=== PATIENT | male | born 1950 | race Caucasian/White ===

== ENCOUNTER 2017-07-02 08:42 | Outpatient (CLI) | payer MEDICARE, OTHER | END 2017-07-02 23:59 | disposition home or self-care (01) | LOC: RT 08:42 | PROVIDERS: ATTEND Internal Medicine Critical Care Medicine | DX: J44.9 Chronic obstructive pulmonary disease, unspecified (principal) ==

== ENCOUNTER 2019-05-24 23:50 | Emergency (ER) | payer MEDICARE ==
[~2019-05-24] VITALS: Ht 175.3 cm; Wt 62.3 kg
[2019-05-24] MEDS ORDERED: aspirin 81mg tab.chew PO ONE (23:55)
[2019-05-25 01:05] LABS: ALANINE AMINOTRANSFERASE 21 U/L (12-78); ALBUMIN 3.8 G/DL (3.4-5.0); ALBUMIN/GLOBULIN RATIO 1.1 (1.1-1.5); ALKALINE PHOSPHATASE 95 IU/L (46-116); ANION GAP 1 (8-16); ASPARTATE AMINO TRANSFERASE 29 U/L (10-37); BILIRUBIN,TOTAL 0.2 MG/DL (0.1-1.0); BLOOD UREA NITROGEN 18 MG/DL (7-18); BUN/CREATININE RATIO 13.5 (5.4-32.0); CHLORIDE 105 MMOL/L (99-107); CREATININE 1.33 MG/DL (0.60-1.10); GLUCOSE 104 MG/DL (70-104); POTASSIUM 4.1 MMOL/L (3.5-5.1); SODIUM 142 MMOL/L (135-145); TOTAL CARBON DIOXIDE 35.6 MMOL/L (24-32); TOTAL PROTEIN 7.3 G/DL (6.4-8.2); eGFR 53 ML/MIN
[2019-05-25 01:11] LABS: BASOPHILS # (AUTO) 0.1 X10'3 (0-0.2); BASOPHILS % (AUTO) 0.7 % (0-1); EOSINOPHILS # (AUTO) 0.2 X10'3 (0-0.9); EOSINOPHILS % (AUTO) 2.1 % (0-6); HEMATOCRIT 39.4 % (42.0-52.0); HEMOGLOBIN 13.3 g/dl (14.0-17.9); LYMPHOCYTES # (AUTO) 2.1 X10'3 (1.1-4.8); LYMPHOCYTES % (AUTO) 24.2 % (21-51); MEAN CORPUSCULAR HEMOGLOBIN 30.6 PG (27.0-31.0); MEAN CORPUSCULAR HGB CONC 33.9 g/dL (33.0-36.5); MEAN CORPUSCULAR VOLUME 90.4 FL (78-98); MEAN PLATELET VOLUME 7.6 FL (7.4-10.4); MONOCYTES # (AUTO) 0.7 X10'3 (0-0.9); MONOCYTES % (AUTO) 8.3 % (2-12); NEUTROPHILS # (AUTO) 5.7 X10'3 (1.8-7.7); NEUTROPHILS % (AUTO) 64.7 % (42-75); PLATELET COUNT 340 X10'3 (140-440); RED BLOOD COUNT 4.35 X10'6 (4.70-6.10); RED CELL DISTRIBUTION WIDTH 13.3 % (11.5-14.5); WHITE BLOOD COUNT 8.7 X10'3 (4.5-11.0)
[2019-05-25 01:14] LABS: MAGNESIUM 1.7 MG/DL (1.5-2.4)
[2019-05-25] MEDS ORDERED: AZIT250T83 PO (01:29)
[2019-05-25 01:37] VITALS: BP 156/90
== END 2019-05-25 01:47 | disposition home or self-care (01) ==
LOC: ER 23:51
DX: R07.89 Other chest pain (principal); J44.9 Chronic obstructive pulmonary disease, unspecified; I10 Essential (primary) hypertension; Z87.891 Personal history of nicotine dependence; Z99.81 Dependence on supplemental oxygen
CPT/HCPCS: 36415; 71045; 80053; 83735; 83880; 84484; 85025; 93005; 99284

== ENCOUNTER 2019-08-18 13:42 | Inpatient (IN) | payer MEDICARE ==
[~2019-08-18] VITALS: Ht 172.7 cm; Wt 61.4 kg
[2019-08-18] MEDS ORDERED: albuterol 2.5 MG/3 ML nebule NEB ONE ×2 (14:00→16:40)
[2019-08-18] MEDS ORDERED: methylPREDNISolone sod succ 125mg/2ml vial IV ONE (14:00)
[2019-08-18 14:10] LABS: BASOPHILS % (AUTO) 0.1 % (0-1); EOSINOPHILS % (AUTO) 0 % (0-6); HEMATOCRIT 37.5 % (42.0-52.0); HEMOGLOBIN 12.6 g/dl (14.0-17.9); LYMPHOCYTES # (AUTO) 0.3 X10'3 (1.1-4.8); LYMPHOCYTES % (AUTO) 2.2 % (21-51); MEAN CORPUSCULAR HEMOGLOBIN 29.9 PG (27.0-31.0); MEAN CORPUSCULAR HGB CONC 33.7 g/dL (33.0-36.5); MEAN CORPUSCULAR VOLUME 88.7 FL (78-98); MEAN PLATELET VOLUME 7.3 FL (7.4-10.4); MONOCYTES # (AUTO) 0.3 X10'3 (0-0.9); MONOCYTES % (AUTO) 2.5 % (2-12); NEUTROPHILS # (AUTO) 11.8 X10'3 (1.8-7.7); NEUTROPHILS % (AUTO) 95.2 % (42-75); PLATELET COUNT 377 X10'3 (140-440); RED BLOOD COUNT 4.23 X10'6 (4.70-6.10); RED CELL DISTRIBUTION WIDTH 14.2 % (11.5-14.5); WHITE BLOOD COUNT 12.4 X10'3 (4.5-11.0)
[2019-08-18 14:24] LABS: ALANINE AMINOTRANSFERASE 20 U/L (12-78); ALKALINE PHOSPHATASE 99 IU/L (46-116); ANION GAP 9 (8-16); ASPARTATE AMINO TRANSFERASE 26 U/L (10-37); BILIRUBIN,TOTAL 0.5 MG/DL (0.1-1.0); BLOOD UREA NITROGEN 21 MG/DL (7-18); BUN/CREATININE RATIO 13.6 (5.4-32.0); CALCIUM 9.2 MG/DL (8.5-10.1); CHLORIDE 94 MMOL/L (99-107); CREATININE 1.54 MG/DL (0.60-1.10); GLUCOSE 144 MG/DL (70-104); POTASSIUM 4.8 MMOL/L (3.5-5.1); SODIUM 131 MMOL/L (135-145); TOTAL CARBON DIOXIDE 28.5 MMOL/L (24-32); eGFR 45 ML/MIN
[2019-08-18] MEDS ORDERED: CefTRIAXone 2gm/D5W 50ml 50 ML IV ONE (16:05)
[2019-08-18] MEDS ORDERED: DOXY100T2 PO (16:28)
[2019-08-18] MEDS ORDERED: TIOT4MIS2 IH (16:28)
[2019-08-18] MEDS ORDERED: PRED10TA PO (16:28)
[2019-08-18] MEDS ORDERED: BUDE10.2 IH (16:28)
[2019-08-18] MEDS ORDERED: SPIR25TA5 PO ×2 (16:28)
[2019-08-18] MEDS ORDERED: OMEP-50 PO (16:36)
[2019-08-18] MEDS ORDERED: MULT-1085 PO (16:36)
[2019-08-18] MEDS ORDERED: CHOL20004 PO (16:36)
[2019-08-18] MEDS ORDERED: BISO1TAB38 PO (16:36)
[2019-08-18 16:41] LABS: ABG BASE EXCESS 1.3 mmol/L (-2.0-3.0); ABG HCO3 25.7 mmol/L (22.0-26.0); ABG OXYGEN SATURATION 96.2 % (95-98); ABG PCO2 (T) 40.1 mmHg (35.0-45.0); ABG PH (T) 7.425 (7.350-7.450); ABG PO2 (T) 78.2 mmHg (83-108); ALLEN'S TEST POSITIVE; FCOHb 0.4 % (0.5-1.5); FLOW 3 L/min; FMetHb 0.1 % (0.3-1.12); FO2Hb 95.7 % (94-100); TOTAL HEMOGLOBIN 13.2 G/dl (14.0-17.9)
[2019-08-18] MEDS: normal saline 1000ml 1,000 ML IV SCH (16:42)
[2019-08-18] MEDS ORDERED: albuterol 2.5 MG/3 ML nebule ONE (16:42)
[2019-08-18] MEDS ORDERED: ondansetron/PF 4mg/2ml inj IV PRN (16:45)
[2019-08-18] MEDS ORDERED: mag hydrox/Alum hydrox/simeth 30ml oral suspension PO PRN (16:45)
[2019-08-18] MEDS ORDERED: acetaminophen 325mg tablet PO PRN (16:45)
[2019-08-18] MEDS ORDERED: magnesium hydroxide 30ml (MOM) UD suspension PO PRN (16:45)
--- NOTE | 2019-08-18 16:47 | NUR ---
rt at bedside giving tx.
[2019-08-18] MEDS: levoFLOXACIN-Levaquin 750MG/D5 150 ML IV SCH (17:30)
--- NOTE | 2019-08-18 17:48 | NUR ---
Received report from Yousuf in ED. Patient will be admitted to room 7192E
--- NOTE | 2019-08-18 18:04 | NUR ---
Patient admitted to 3013A at 1756. VS: BP 147/76, HR 91; RR 22; pain 0/10, O2 98% on 4 L. patient was a little short of breath upon admit from walking and ER nurse put O2 up from 3 L until patient recovers. Tele placed on patient.
--- NOTE | 2019-08-18 18:12 | NUR ---
Problems reprioritized. Patient report given, questions answered & plan of care reviewed with Ingrid DEJESUS.
[2019-08-18 18:48] VITALS: BP 152/80
[2019-08-18] MEDS: ipratropium/albuterol 3ml nebule NEB SCH ×2 (18:54→23:23)
[2019-08-18] MEDS: budesonide 0.5mg/2ml UD nebule IH SCH (18:55)
[2019-08-18] MEDS: heparin, porcine 5000 units/ml vial SQ SCH (20:00)
[2019-08-18] MEDS: methylPREDNISolone sod succ 125mg/2ml vial IV SCH (20:30)
[2019-08-18] MEDS: guaiFENesin ER 600mg tablet PO SCH (20:31)
[2019-08-18] MEDS: spironolactone 25 MG tablet PO SCH (20:31)
[2019-08-18] MEDS: LORazepam 0.5 MG tablet PO PRN (20:31)
--- NOTE | 2019-08-18 21:28 | NUR ---
pt wanted bipap. seems a little less anxious after anxiety med. sitting in recliner. states he just doesnt feel good and feels like he can't breathe. sats 98%on 6Lnc
[2019-08-18 23:00] VITALS: BP 126/77
--- NOTE | 2019-08-18 23:23 | NUR ---
pt wanted bipap off, stated he is too uncomfortable, RT at bedside also. nasal cannula on
[2019-08-19] MEDS ORDERED: temazepam 15mg capsule PO ONE (00:25)
[2019-08-19] MEDS: methylPREDNISolone sod succ 125mg/2ml vial IV SCH ×4 (02:01→20:24)
[2019-08-19] MEDS: LORazepam 0.5 MG tablet PO PRN ×3 (02:01→23:32)
[2019-08-19 02:07] VITALS: BP 118/66
[2019-08-19] MEDS: ipratropium/albuterol 3ml nebule NEB SCH ×6 (03:03→23:23)
[2019-08-19 04:53] LABS: BASOPHILS % (AUTO) 0.1 % (0-1); EOSINOPHILS % (AUTO) 0 % (0-6); HEMATOCRIT 35.9 % (42.0-52.0); HEMOGLOBIN 12.3 g/dl (14.0-17.9); LYMPHOCYTES # (AUTO) 0.4 X10'3 (1.1-4.8); LYMPHOCYTES % (AUTO) 3.8 % (21-51); MEAN CORPUSCULAR HEMOGLOBIN 30.4 PG (27.0-31.0); MEAN CORPUSCULAR HGB CONC 34.4 g/dL (33.0-36.5); MEAN CORPUSCULAR VOLUME 88.2 FL (78-98); MEAN PLATELET VOLUME 7.9 FL (7.4-10.4); MONOCYTES # (AUTO) 0.3 X10'3 (0-0.9); MONOCYTES % (AUTO) 2.7 % (2-12); NEUTROPHILS # (AUTO) 9.4 X10'3 (1.8-7.7); NEUTROPHILS % (AUTO) 93.4 % (42-75); PLATELET COUNT 358 X10'3 (140-440); RED BLOOD COUNT 4.06 X10'6 (4.70-6.10); WHITE BLOOD COUNT 10.1 X10'3 (4.5-11.0)
[2019-08-19 05:17] LABS: ALBUMIN 3.7 G/DL (3.4-5.0); ANION GAP 14 (8-16); BLOOD UREA NITROGEN 22 MG/DL (7-18); BUN/CREATININE RATIO 14.1 (5.4-32.0); CHLORIDE 90 MMOL/L (99-107); CREATININE 1.56 MG/DL (0.60-1.10); GLUCOSE 151 MG/DL (70-104); POTASSIUM 4.5 MMOL/L (3.5-5.1); SODIUM 132 MMOL/L (135-145); TOTAL CARBON DIOXIDE 28.4 MMOL/L (24-32); eGFR 44 ML/MIN
--- NOTE | 2019-08-19 06:08 | NUR ---
Problems reprioritized. Patient report given, questions answered & plan of care reviewed with Lali DEJESUS.
--- NOTE | 2019-08-19 06:49 | NUR ---
Patient in room PCU 3013. I have received report from OLEG Quintero and had the opportunity to ask questions and assume patient care. Patient awake in recliner and in no acute distress.
[2019-08-19 07:00] VITALS: BP 140/83
[2019-08-19] MEDS: budesonide 0.5mg/2ml UD nebule IH SCH ×2 (07:14→19:08)
[2019-08-19] MEDS ORDERED: vitamin D (cholecalciferol) 1,000 unit tablet PO SCH (08:00)
[2019-08-19] MEDS ORDERED: ipratropium 0.5 MG/2.5ML nebule IH SCH (08:00)
[2019-08-19] MEDS: heparin, porcine 5000 units/ml vial SQ SCH ×2 (08:00→20:00)
[2019-08-19] MEDS: atenolol 25mg tablet PO SCH (08:01)
[2019-08-19] MEDS: pantoprazole 40mg Tablet.DR PO SCH (08:02)
[2019-08-19] MEDS: spironolactone 25 MG tablet PO SCH ×2 (08:02→20:26)
[2019-08-19] MEDS: guaiFENesin ER 600mg tablet PO SCH ×2 (08:02→20:25)
[2019-08-19] MEDS: multivitamins, therapeutics tablet PO SCH (08:03)
[2019-08-19] MEDS: levoFLOXACIN-Levaquin 750MG/D5 150 ML IV SCH (08:05)
[2019-08-19] MEDS: HYDROchlorothiazide 25mg tablet PO SCH (08:05)
[2019-08-19 11:00] VITALS: BP 137/89
[2019-08-19 15:00] VITALS: BP 141/78
--- NOTE | 2019-08-19 15:37 | NUR ---
Malnutrition consult: Pt admit w/ COPD exacerbation, community-acquired PNA w/ hx COPD. Pt reports no significant change in SOB yet per MD note. Pt seen by KAREY and reports lower PO past 6 months secondary to SOB w/ mild wt loss. Pt reports 145 pounds 6 months ago; current wt not scaled this admit and pt has no accurate scaled wt hx at this time. Pt does not appear to have visible muscle/fat wasting, has normal strength, no edema/wounds. At this time pt does not meet minimum malnutrition criteria. PO 0-25% heart healthy meals so far this admit; pt reports r/t SOB but was agreeable to heart healthy diet alternative write-in list in addition to Ensure Enlive TIDWM; MD notified. Will continue to monitor for additional malnutrition criteria this admit. Addendum: 08/19/19 at [address] Amended: Links added.
[2019-08-19] MEDS ORDERED: lactose-reduced food (Ensure Enlive) - 237ml bottle PO SCH (18:00)
--- NOTE | 2019-08-19 18:32 | NUR ---
Patient in room PCU 3013. I have received report from OLEG Escalera and had the opportunity to ask questions and assume patient care.
--- NOTE | 2019-08-19 18:32 | NUR ---
Problems reprioritized. Patient report given, questions answered & plan of care reviewed with OLEG Echevarria. Patient stable at transfer of care.
[2019-08-19 19:00] VITALS: BP 135/83
[2019-08-19] MEDS: lactobacillus rhamnosus 10,000 MMU CELLS/CAPSULE PO SCH (20:25)
[2019-08-19] MEDS ORDERED: Melatonin 3mg tablet PO PRN (21:40)
[2019-08-19 23:00] VITALS: BP 121/75
[2019-08-20] MEDS: methylPREDNISolone sod succ 125mg/2ml vial IV SCH ×4 (02:47→19:55)
[2019-08-20 03:00] VITALS: BP 134/70
[2019-08-20] MEDS: ipratropium/albuterol 3ml nebule NEB SCH ×6 (03:21→23:17)
[2019-08-20 05:15] LABS: BASOPHILS % (AUTO) 0.1 % (0-1); EOSINOPHILS % (AUTO) 0 % (0-6); HEMATOCRIT 37.5 % (42.0-52.0); LYMPHOCYTES # (AUTO) 0.4 X10'3 (1.1-4.8); LYMPHOCYTES % (AUTO) 2.3 % (21-51); MEAN CORPUSCULAR HEMOGLOBIN 30.2 PG (27.0-31.0); MEAN CORPUSCULAR HGB CONC 34.6 g/dL (33.0-36.5); MEAN CORPUSCULAR VOLUME 87.5 FL (78-98); MEAN PLATELET VOLUME 7.9 FL (7.4-10.4); MONOCYTES # (AUTO) 0.8 X10'3 (0-0.9); NEUTROPHILS # (AUTO) 15.1 X10'3 (1.8-7.7); NEUTROPHILS % (AUTO) 92.6 % (42-75); PLATELET COUNT 391 X10'3 (140-440); RED BLOOD COUNT 4.29 X10'6 (4.70-6.10); RED CELL DISTRIBUTION WIDTH 13.9 % (11.5-14.5); WHITE BLOOD COUNT 16.3 X10'3 (4.5-11.0)
[2019-08-20 05:29] LABS: ALBUMIN 3.7 G/DL (3.4-5.0); ANION GAP 7 (8-16); BLOOD UREA NITROGEN 35 MG/DL (7-18); BUN/CREATININE RATIO 21.2 (5.4-32.0); CALCIUM 9.4 MG/DL (8.5-10.1); CHLORIDE 90 MMOL/L (99-107); CREATININE 1.65 MG/DL (0.60-1.10); GLUCOSE 126 MG/DL (70-104); POTASSIUM 4.6 MMOL/L (3.5-5.1); SODIUM 126 MMOL/L (135-145); TOTAL CARBON DIOXIDE 29.2 MMOL/L (24-32); eGFR 42 ML/MIN
--- NOTE | 2019-08-20 06:06 | NUR ---
Problems reprioritized. Patient report given, questions answered & plan of care reviewed with OLEG Escalera.
[2019-08-20 07:04] VITALS: BP 129/74
[2019-08-20] MEDS: budesonide 0.5mg/2ml UD nebule IH SCH ×2 (07:13→19:24)
[2019-08-20] MEDS: heparin, porcine 5000 units/ml vial SQ SCH ×2 (08:00→19:55)
[2019-08-20] MEDS: multivitamins, therapeutics tablet PO SCH (08:10)
[2019-08-20] MEDS: vitamin D (cholecalciferol) 1,000 unit tablet PO SCH (08:10)
[2019-08-20] MEDS: pantoprazole 40mg Tablet.DR PO SCH (08:11)
[2019-08-20] MEDS: HYDROchlorothiazide 25mg tablet PO SCH (08:11)
[2019-08-20] MEDS: atenolol 25mg tablet PO SCH (08:11)
[2019-08-20] MEDS: spironolactone 25 MG tablet PO SCH ×2 (08:12→20:07)
[2019-08-20] MEDS: LORazepam 0.5 MG tablet PO PRN ×2 (08:13→23:37)
[2019-08-20] MEDS: lactobacillus rhamnosus 10,000 MMU CELLS/CAPSULE PO SCH ×2 (08:13→19:54)
[2019-08-20] MEDS: guaiFENesin ER 600mg tablet PO SCH ×2 (08:13→20:06)
[2019-08-20 11:00] VITALS: BP 124/72
[2019-08-20 15:00] VITALS: BP 125/73
[2019-08-20] MEDS: CefTRIAXone 2gm/D5W 50ml 50 ML IV SCH (16:17)
[2019-08-20] MEDS: normal saline 1000ml 1,000 ML IV SCH (16:42)
[2019-08-20 18:00] VITALS: BP 130/78
--- NOTE | 2019-08-20 18:05 | NUR ---
Patient in room PCU 3013. I have received report from OLEG Escalera and had the opportunity to ask questions and assume patient care.
--- NOTE | 2019-08-20 18:05 | NUR ---
Problems reprioritized. Patient report given, questions answered & plan of care reviewed with OLEG Huitron. Patient stable at transfer of care.
[2019-08-20 22:00] VITALS: BP 115/57
[2019-08-21] MEDS: methylPREDNISolone sod succ 125mg/2ml vial IV SCH ×3 (01:55→14:09)
[2019-08-21 02:00] VITALS: BP 117/57
[2019-08-21] MEDS: ipratropium/albuterol 3ml nebule NEB SCH ×4 (02:51→14:50)
--- NOTE | 2019-08-21 03:36 | NUR ---
Pt's last BM was 08/18/2019, offered MOM, but pt refused.
--- NOTE | 2019-08-21 06:21 | NUR ---
Problems reprioritized. Patient report given, questions answered & plan of care reviewed with OLEG Licea.
[2019-08-21 06:27] LABS: BASOPHILS % (AUTO) 0.1 % (0-1); EOSINOPHILS % (AUTO) 0 % (0-6); HEMATOCRIT 35.7 % (42.0-52.0); HEMOGLOBIN 12.4 g/dl (14.0-17.9); LYMPHOCYTES # (AUTO) 0.3 X10'3 (1.1-4.8); MEAN CORPUSCULAR HEMOGLOBIN 30.6 PG (27.0-31.0); MEAN CORPUSCULAR HGB CONC 34.6 g/dL (33.0-36.5); MEAN CORPUSCULAR VOLUME 88.2 FL (78-98); MEAN PLATELET VOLUME 7.9 FL (7.4-10.4); MONOCYTES # (AUTO) 0.7 X10'3 (0-0.9); MONOCYTES % (AUTO) 8.5 % (2-12); NEUTROPHILS # (AUTO) 7.1 X10'3 (1.8-7.7); NEUTROPHILS % (AUTO) 87.4 % (42-75); PLATELET COUNT 338 X10'3 (140-440); RED BLOOD COUNT 4.05 X10'6 (4.70-6.10); RED CELL DISTRIBUTION WIDTH 13.8 % (11.5-14.5); WHITE BLOOD COUNT 8.2 X10'3 (4.5-11.0)
--- NOTE | 2019-08-21 06:31 | NUR ---
Patient in room PCU 3013. I have received report from Elana DEJESUS and had the opportunity to ask questions and assume patient care.
[2019-08-21 06:37] LABS: ALBUMIN 3.2 G/DL (3.4-5.0); ANION GAP 6 (8-16); BLOOD UREA NITROGEN 43 MG/DL (7-18); BUN/CREATININE RATIO 28.5 (5.4-32.0); CALCIUM 9.1 MG/DL (8.5-10.1); CHLORIDE 94 MMOL/L (99-107); CREATININE 1.51 MG/DL (0.60-1.10); GLUCOSE 124 MG/DL (70-104); POTASSIUM 4.9 MMOL/L (3.5-5.1); SODIUM 131 MMOL/L (135-145); TOTAL CARBON DIOXIDE 31.5 MMOL/L (24-32); eGFR 46 ML/MIN
[2019-08-21] MEDS: lactobacillus rhamnosus 10,000 MMU CELLS/CAPSULE PO SCH (07:10)
[2019-08-21] MEDS: vitamin D (cholecalciferol) 1,000 unit tablet PO SCH (07:10)
[2019-08-21] MEDS: heparin, porcine 5000 units/ml vial SQ SCH ×2 (07:10→07:13)
[2019-08-21] MEDS: multivitamins, therapeutics tablet PO SCH (07:11)
[2019-08-21] MEDS: guaiFENesin ER 600mg tablet PO SCH (07:11)
[2019-08-21] MEDS: pantoprazole 40mg Tablet.DR PO SCH (07:11)
[2019-08-21] MEDS ORDERED: levoFLOXACIN-Levaquin 750MG/D5 150 ML IV SCH (08:00)
[2019-08-21] MEDS: budesonide 0.5mg/2ml UD nebule IH SCH (08:10)
[2019-08-21 11:00] VITALS: BP 140/76
[2019-08-21] MEDS ORDERED: lactose-reduced food (Ensure Enlive) - 237ml bottle PO SCH ×2 (13:00)
--- NOTE | 2019-08-21 13:51 | NUR ---
Patient in room PCU 3013. I have received report from OLEG Licea and had the opportunity to ask questions and assume patient care.
--- NOTE | 2019-08-21 13:52 | NUR ---
Problems reprioritized. Patient report given, questions answered & plan of care reviewed with Kay.
[2019-08-21] MEDS: CefTRIAXone 2gm/D5W 50ml 50 ML IV SCH (14:09)
[2019-08-21 15:00] VITALS: BP 136/84
[2019-08-21] MEDS: LORazepam 0.5 MG tablet PO PRN (15:48)
== END 2019-08-21 17:53 | DRG 193 ==
LOC: ER 13:42 → ED HOLD 16:42 → UNDOADMIN 16:51 → ED HOLD 17:50 → PCU 3S 17:50
PROVIDERS: ADMIT Family Medicine; ATTEND Family Medicine
PROC: 5A09357 Assistance with Respiratory Ventilation, Less than 24 Consecutive Hours, Continuous Positive Airway Pressure (ICD-10-PCS; principal; 2019-08-18)
PROC: 5A09357 Assistance with Respiratory Ventilation, Less than 24 Consecutive Hours, Continuous Positive Airway Pressure (ICD-10-PCS; 2019-08-19)
PROC: 5A09357 Assistance with Respiratory Ventilation, Less than 24 Consecutive Hours, Continuous Positive Airway Pressure (ICD-10-PCS; 2019-08-20)
PROC: 5A09357 Assistance with Respiratory Ventilation, Less than 24 Consecutive Hours, Continuous Positive Airway Pressure (ICD-10-PCS; 2019-08-21)
DX: J18.9 Pneumonia, unspecified organism (principal); J96.20 Acute and chronic respiratory failure, unspecified whether with hypoxia or hypercapnia; J44.1 Chronic obstructive pulmonary disease with (acute) exacerbation; J44.0 Chronic obstructive pulmonary disease with (acute) lower respiratory infection; E87.1 Hypo-osmolality and hyponatremia; I12.9 Hypertensive chronic kidney disease with stage 1 through stage 4 chronic kidney disease, or unspecified chronic kidney disease; N18.9 Chronic kidney disease, unspecified; Z87.891 Personal history of nicotine dependence; Z99.81 Dependence on supplemental oxygen
CPT/HCPCS: 36415; 36600; 71045; 80048; 80053; 82803; 83880; 84145; 84484; 85018; 85025; 87081; 93005; 94640; 94660; 94760; 96374; 99285; G0378; J0696; J1644; J1956; J2930; J7626

== ENCOUNTER 2019-09-06 12:24 | Emergency (ER) | payer MEDICARE ==
[~2019-09-06] VITALS: Ht 172.7 cm; Wt 61.4 kg
[~2019-09-06 12:24] MED LIST: ACET-2119 PO; ALB0.5UD IH; ATR0.5NEB IH; BUDE0.5A11 IH; CHOL20004 PO; GUAI600T45 PO; HEPA500015 IJ; LACT1CAP92 PO; METH125V13 IJ; MULT-1085 PO; [UNRECOGNIZED DRUG - CODE]; [UNRECOGNIZED DRUG - CODE] IV
[2019-09-06 13:08] LABS: BASOPHILS % (AUTO) 0.3 % (0-1); EOSINOPHILS % (AUTO) 0 % (0-6); HEMATOCRIT 39.3 % (42.0-52.0); HEMOGLOBIN 12.7 g/dl (14.0-17.9); LYMPHOCYTES # (AUTO) 0.4 X10'3 (1.1-4.8); LYMPHOCYTES % (AUTO) 2.4 % (21-51); MEAN CORPUSCULAR HEMOGLOBIN 29.1 PG (27.0-31.0); MEAN CORPUSCULAR HGB CONC 32.4 g/dL (33.0-36.5); MEAN CORPUSCULAR VOLUME 89.8 FL (78-98); MEAN PLATELET VOLUME 7.8 FL (7.4-10.4); MONOCYTES # (AUTO) 0.4 X10'3 (0-0.9); MONOCYTES % (AUTO) 2.3 % (2-12); NEUTROPHILS # (AUTO) 16.8 X10'3 (1.8-7.7); PLATELET COUNT 288 X10'3 (140-440); RED BLOOD COUNT 4.38 X10'6 (4.70-6.10); WHITE BLOOD COUNT 17.6 X10'3 (4.5-11.0)
[2019-09-06 13:21] LABS: ALANINE AMINOTRANSFERASE 61 U/L (12-78); ALBUMIN 2.4 G/DL (3.4-5.0); ALBUMIN/GLOBULIN RATIO 0.7 (1.1-1.5); ALKALINE PHOSPHATASE 55 IU/L (46-116); ANION GAP 3 (8-16); ASPARTATE AMINO TRANSFERASE 27 U/L (10-37); BILIRUBIN,TOTAL 0.4 MG/DL (0.1-1.0); BLOOD UREA NITROGEN 48 MG/DL (7-18); BUN/CREATININE RATIO 36.4 (5.4-32.0); C-REACTIVE PROTEIN 1.09 MG/DL (0.0-0.5); CALCIUM 8.8 MG/DL (8.5-10.1); CHLORIDE 102 MMOL/L (99-107); CREATININE 1.32 MG/DL (0.60-1.10); GLUCOSE 162 MG/DL (70-104); MAGNESIUM 2.3 MG/DL (1.5-2.4); POTASSIUM 4.6 MMOL/L (3.5-5.1); SODIUM 139 MMOL/L (135-145); TOTAL CARBON DIOXIDE 33.6 MMOL/L (24-32); TOTAL PROTEIN 5.7 G/DL (6.4-8.2); eGFR 54 ML/MIN
[2019-09-06 13:22] LABS: CLARITY,URINE CLEAR (Clear); COLOR,URINE YELLOW (Yellow); GLUCOSE, URINE NEGATIVE (Neg); KETONES,URINE NEGATIVE (Neg); LEUKOCYTE ESTERASE ,URINE NEGATIVE (Neg); NITRITES, URINE NEGATIVE (Neg); OCCULT BLOOD,URINE MODERATE (Neg); PH,URINE 5.5 (4.8-8.0); PROTEIN,URINE NEGATIVE (Neg); UROBILINOGEN,URINE 0.2 E.U/dL (0.2-1.0)
[2019-09-06 13:28] LABS: RBC,URINE 0-2 /HPF (0-2); UA COLLECTION TYPE URINAL; WBC,URINE 0-4 /HPF (0-4)
[2019-09-06 13:29] LABS: BACTERIA,URINE NONE SEEN /HPF (Neg); MUCUS STRANDS NONE SEEN /LPF (Neg); SQUAMOUS EPITHELIAL CELL,UR NONE SEEN /LPF (FEW)
--- NOTE | 2019-09-06 13:35 | NUR ---
Dr Botello in room to see patient. Pt changed from non-rebreather at 10L to NC at 4L, will continue to monitor oxygen sats.
--- NOTE | 2019-09-06 13:42 | NUR ---
gerard virus swab obtained and sent to lab.
--- NOTE | 2019-09-06 15:20 | NUR ---
Pt to CT and back to room.
[2019-09-06] MEDS ORDERED: metroNIDAZOLE-Flagyl 500mg/NS 100 ML IV ONE (15:40)
[2019-09-06] MEDS ORDERED: normal saline 1000ML IV soln IVB ONE (15:55)
[2019-09-06] MEDS ORDERED: iohexol 350MG/ML 100ml bottle IV ONE (16:01)
[2019-09-06] MEDS ORDERED: LORazepam 2 mg/ml vial IV ONE (16:30)
[2019-09-06 16:31] LABS: ABG BASE EXCESS 3.3 mmol/L (-2.0-3.0); ABG HCO3 28.4 mmol/L (22.0-26.0); ABG PCO2 (T) 45.3 mmHg (35.0-45.0); ABG PH (T) 7.415 (7.350-7.450); ABG PO2 (T) 90.9 mmHg (83-108); ALLEN'S TEST POSITIVE; FCOHb 0.1 % (0.5-1.5); FLOW 6 L/min; FMetHb 0.1 % (0.3-1.12); FO2Hb 96.8 % (94-100); TOTAL HEMOGLOBIN 12.5 G/dl (14.0-17.9)
--- NOTE | 2019-09-06 16:41 | NUR ---
Spoke with Tara from [facility], received verbal conscent from pt to update facility on pt care/status. Facilty updated pt to have CTA for further workup.
[2019-09-06 17:43] VITALS: BP 104/79
--- NOTE | 2019-09-06 17:53 | NUR ---
Called report to [facility], Pt will be returning via EMS.
[2019-09-15] MEDS ORDERED: MAG355OR18 PO (18:36)
[2019-09-15] MEDS ORDERED: PRED10TA23 PO (18:36)
[2019-09-15] MEDS ORDERED: QUE9P PO (18:36)
[2019-09-15] MEDS ORDERED: DILT-35 PO (18:36)
[2019-09-15] MEDS ORDERED: ONDA4TAB6 PO (18:36)
[2019-09-15] MEDS ORDERED: POLY119P2 PO (18:36)
[2019-09-15] MEDS ORDERED: ACET-1008 PO (18:36)
[2019-09-15] MEDS ORDERED: PANT40TA4 PO (18:36)
[2019-09-15] MEDS ORDERED: BISM-51 PO (18:36)
[2019-09-15] MEDS ORDERED: HYDR-3965 PO (18:36)
[2019-09-15] MEDS ORDERED: PRED5TAB49 PO (18:36)
[2019-09-15] MEDS ORDERED: ALPR0.252 PO (18:36)
[2019-09-15] MEDS ORDERED: CHOL20004 PO (18:36)
[2019-09-15] MEDS ORDERED: MAG-154 PO (18:36)
== END 2019-09-06 18:45 ==
LOC: ER 12:25
DX: K52.9 Noninfective gastroenteritis and colitis, unspecified (principal); Z20.828 Contact with and (suspected) exposure to other viral communicable diseases; J18.9 Pneumonia, unspecified organism; J44.9 Chronic obstructive pulmonary disease, unspecified; I25.10 Atherosclerotic heart disease of native coronary artery without angina pectoris; I10 Essential (primary) hypertension; Z79.899 Other long term (current) drug therapy
CPT/HCPCS: 36415; 36600; 71045; 72191; 74175; 74176; 80053; 81001; 82803; 83605; 83735; 84145; 85018; 85025; 85610; 86140; 87040; 87635; 96365; 96375; 99285; J2060; J3490; J7030; Q9967